=== PATIENT | female | born 1975 | race Caucasian/White ===

== ENCOUNTER 2019-05-17 07:23 | Inpatient (IN) | payer BC ==
[2019-05-14 12:19] LABS: Basophils # (auto) 0 uL; Eosinophils # (auto) 0.1 uL; Eosinophils % (auto) 1.8 % (0.0-7.0); Hematocrit 44.2 % (36.0-46.0); Hemoglobin 14.4 g/dL (12.2-16.2); Lymphocytes # (auto) 1.5 uL; Lymphocytes % (auto) 35.1 % (10.0-50.0); Mean Corpuscular Hemoglobin 28.7 pg (28.0-32.0); Mean Corpuscular Hgb Conc. 32.6 g/dL (32.0-36.0); Monocytes # (auto) 0.4 uL; Monocytes % (auto) 8.3 % (0.0-12.0); Neutrophils # (auto) 2.3 uL; Neutrophils % (auto) 53.8 % (37.0-80.0); Platelet Count (auto) 284 10^3/uL (140-450); Red Blood Cells 5.03 10^6/uL (4.0-5.20); White Blood Cell 4.3 10^3/uL (4.4-10.8)
[2019-05-14 12:21] LABS: Urine Bacteria FEW /hpf (None Seen); Urine Blood Negative /uL (Negative); Urine Specific Gravity 1.013 (1.001-1.035); Urine WBC <1 /hpf (0 - 5)
[2019-05-14 12:44] LABS: Potassium 3.9 mmol/L (3.5-5.1); Sodium 140 mmol/L (136-145)
[2019-05-14 12:45] LABS: Alanine Aminotransferase 23 U/L (13-56); Albumin 3.3 g/dL (3.4-5.0); Alkaline Phosphatase 70 U/L (45-117); Anion Gap 2 (5-15); Aspartate Aminotransferase 14 U/L (15-37); BUN/Creatinine Ratio 15.7; Bilirubin, Total 0.4 mg/dL (0.2-1.0); Blood Urea Nitrogen 14 mg/dL (7-18); Calcium 8.8 mg/dL (8.5-10.1); Carbon Dioxide 30 mmol/L (21-32); Chloride 108 mmol/L (98-107); GFR African American 89 mL/min; GFR Non-African American 74 mL/min; Glucose 80 mg/dL (74-106); Total Protein 7.9 g/dL (6.4-8.2)
[2019-05-14 12:47] LABS: INR 1.01 (0.9-1.15); Partial Thromboplastin Time 26.7 sec (23.64-32.05)
[~2019-05-17] VITALS: Ht 167.6 cm; Wt 136.5 kg
[~2019-05-17 07:23] MED LIST: ALBUAER3 IN; FLUT1SPR5
[2019-05-17] MEDS ORDERED: ceFAZolin 1GM/50ML 100 ML IV ONE (08:05)
[2019-05-17] MEDS ORDERED: SUCCINYLCHOLINE CHLORIDE 20 MG/ML 10ML VIAL IV ONE (08:34)
[2019-05-17] MEDS ORDERED: LIDOCAINE 1% (LOCAL ANESTH.) PF 5ml SDV ONE (08:34)
[2019-05-17] MEDS ORDERED: MIDAZOLAM HCL 1MG/1ML-2 ML VIAL ONE (08:42)
[2019-05-17] MEDS ORDERED: METOCLOPRAMIDE HCL 5MG/ml INJ 2ml VIAL ONE (08:43)
[2019-05-17] MEDS ORDERED: PROPOFOL 10 MG/ML 20 ML IV ONE (08:44)
[2019-05-17] MEDS ORDERED: fentaNYL CITRATE 100 MCG/2 ML VL ONE (08:56)
[2019-05-17] MEDS ORDERED: HYDROmorphone HCL 2 MG/ML VL IV PRN (09:15)
[2019-05-17] MEDS ORDERED: NALOXONE HCL 0.4 MG/ML VIAL IV PRN (09:15)
[2019-05-17] MEDS ORDERED: ONDANSETRON HCL 4 MG/2 ML VIAL IV PRN ×2 (09:15→11:00)
[2019-05-17] MEDS ORDERED: NEOSTIGMINE 1 MG/ML INJ (10mg/10ML VIAL) ONE (10:14)
[2019-05-17] MEDS ORDERED: GLYCOPYRROLATE 0.2 MG/ML 1ML VIAL ONE (10:14)
[2019-05-17] MEDS ORDERED: KETOROLAC TROMETH 30 MG/ML 1ML VIAL ONE (10:19)
[2019-05-17] MEDS ORDERED: ACETAMINOPHEN IV 100 ML IV PRN (11:00)
[2019-05-17] MEDS: HYDROmorphone HCL 2 MG/ML VL IV PRN ×6 (11:11→22:51)
--- NOTE | 2019-05-17 12:30 | NUR ---
ARRIVES TO 217A ALERT COMFORTABLE. ABDOMINAL BINDER OPENED TO SEE DRESSING D&I. PERIPAD SCANT STAIN. IV FLUIDS LR RUNNING AT 150CC/HR ORDERED. WILLAMS IN PLACE. CALL LIGHT IN REACH. C/O THIRST. ICE CHIPS PROVIDED.
[2019-05-17 13:00] VITALS: BP 113/75
[2019-05-17] MEDS: LACTATED RINGER'S 1,000 ML IV SCH ×3 (13:26→21:44)
[2019-05-17 14:04] LABS: Albumin 2.9 g/dL (3.4-5.0); BUN/Creatinine Ratio 11.4; Calcium 8.5 mg/dL (8.5-10.1); Potassium 4.7 mmol/L (3.5-5.1)
[2019-05-17 14:06] LABS: Bilirubin, Total 0.3 mg/dL (0.2-1.0); Total Protein 6.9 g/dL (6.4-8.2)
[2019-05-17] MEDS: ceFAZolin 1GM/50ML 50 ML IV SCH ×2 (14:31→21:45)
[2019-05-17 17:00] VITALS: BP 112/59
--- NOTE | 2019-05-17 19:40 | NUR ---
Opening Shift Note Assumed care of patient, awake and alert. No S/S of distress/SOB or pain. Per day shift RN, patient to be kept on NPO except ice chips throughout the night, patient verbalize understanding. Instructed on POC and to call for assist PRN. Bed locked in lowest position, side rails up x2, call light within reach. Will continue to monitor for changes Q1hr and PRN. Signed: 05/17/19 at 2353 by NAA CARR <Co-Signature Required> Co-Signed: 05/17/19 at 2353 by NIMCO MENA OCA, RN
[2019-05-17 22:00] VITALS: BP 120/61
[2019-05-18 05:00] VITALS: BP 101/58
[2019-05-18] MEDS: HYDROmorphone HCL 2 MG/ML VL IV PRN (05:15)
[2019-05-18 05:37] LABS: Basophils # (auto) 0 uL; Basophils % (auto) 0.3 % (0.0-2.0); Eosinophils # (auto) 0 uL; Eosinophils % (auto) 0.1 % (0.0-7.0); Hematocrit 40.8 % (36.0-46.0); Hemoglobin 13.3 g/dL (12.2-16.2); Lymphocytes # (auto) 0.9 uL; Lymphocytes % (auto) 11.3 % (10.0-50.0); Mean Corpuscular Hemoglobin 28.9 pg (28.0-32.0); Mean Corpuscular Hgb Conc. 32.7 g/dL (32.0-36.0); Mean Corpuscular Volume 88.2 fL (80.0-100.0); Monocytes # (auto) 0.6 uL; Monocytes % (auto) 7.6 % (0.0-12.0); Neutrophils # (auto) 6.6 uL; Neutrophils % (auto) 80.7 % (37.0-80.0); Platelet Count (auto) 246 10^3/uL (140-450); Red Blood Cells 4.62 10^6/uL (4.0-5.20); Red Cell Distribution Width 13.8 % (11.8-14.3); White Blood Cell 8.2 10^3/uL (4.4-10.8)
[2019-05-18] MEDS: ceFAZolin 1GM/50ML 50 ML IV SCH (05:56)
[2019-05-18] MEDS: LACTATED RINGER'S 1,000 ML IV SCH ×3 (05:57→16:23)
--- NOTE | 2019-05-18 06:35 | NUR ---
Spoke with MD Prosper Ferguson in regards to advancing patient's diet for breakfast and ancef antibiotic order. New orders recieved and read back for verification to advance patient to clear liquids and D/C ancef. Will continue care.
--- NOTE | 2019-05-18 07:45 | NUR ---
MD ROUNDS DR SAAVEDRA DISCUSSING POC WITH PATIENT. ALL QUESTIONS/CONCERNS ANSWERED. NEW ORDERS RECEIVED/CARRIED OUT. WILL CONTINUE TO MONITOR
--- NOTE | 2019-05-18 07:50 | NUR ---
Opening Shift Note Assumed care of patient, awake and alert. No S/S of distress/SOB. Instructed on POC and to call for assist PRN with call light within reach. Bed locked in lowest position, side rails up x2. Carrizales in place draining to gravity, no kinks, patent tubing. Will continue to monitor for changes Q1hr and PRN.
[2019-05-18] MEDS ORDERED: HYDROmorphone HCL 2 MG/ML VL IV PRN (08:15)
[2019-05-18] MEDS ORDERED: BISACODYL 10 MG RECT SUPP PR PRN (08:30)
[2019-05-18] MEDS ORDERED: DOCUSATE SOD 100 MG CAP PO PRN (08:30)
[2019-05-18 09:00] VITALS: BP 108/59
[2019-05-18] MEDS: HYDROcodone-ACET 10/325MG TAB PO PRN ×4 (09:13→21:19)
[2019-05-18] MEDS: DOCUSATE CALCIUM 240 MG CAP PO SCH (10:00)
--- NOTE | 2019-05-18 11:30 | NUR ---
Arce catheter dc'd Order to discontinue arce catheter. Arce dc'd with clean technique following deflation of balloon. Patient tolerated well with no complaints of pain. Instructed patient to notify RN when needed to use the bathroom. Patient verbalized understanding. WIll continue to monitor. Addendum: 05/18/19 at 1222 by CONSUELO AGRAWAL RN RN 1300 ml clear light guillermo urine in arce at d/c
--- NOTE | 2019-05-18 12:30 | NUR ---
PATIENT AMBULATING PATIENT AMBULATED APPROXIMATELY 200 FEET. NO S/S OF DISTRESS, SOB. TOLERATED WELL.
--- NOTE | 2019-05-18 12:45 | NUR ---
VOID PATIENT VOIDED IN TOILET. WILL CONTINUE TO MONITOR
[2019-05-18] MEDS: SIMETHICONE 80 MG CHEWABLE TABLET PO SCH ×3 (12:59→21:18)
[2019-05-18 13:00] VITALS: BP 113/63
--- NOTE | 2019-05-18 16:00 | NUR ---
PATIENT AMBULATING PATIENT AMBULATED APPROXIMATELY 200 FEET. NO S/S OF DISTRESS, SOB. TOLERATED WELL.
[2019-05-18 17:00] VITALS: BP 115/73
[2019-05-18 21:53] VITALS: BP 107/62
[2019-05-19 04:43] VITALS: BP 98/61
[2019-05-19] MEDS: SIMETHICONE 80 MG CHEWABLE TABLET PO SCH ×4 (04:56→21:47)
[2019-05-19] MEDS: LACTATED RINGER'S 1,000 ML IV SCH ×3 (04:56→23:53)
[2019-05-19] MEDS: HYDROcodone-ACET 10/325MG TAB PO PRN ×4 (04:56→19:41)
--- NOTE | 2019-05-19 08:20 | NUR ---
MD ROUNDS DR ALEXANDER AT BEDSIDE DISCUSSING POC WITH PATIENT. REMOVED SURGICAL DRESSING. PATIENT TOLERATED WELL. NEW ORDERS RECEIVED/CARRIED OUT. WILL CONTINUE TO MONITOR
[2019-05-19 09:00] VITALS: BP 100/62
[2019-05-19] MEDS: DOCUSATE CALCIUM 240 MG CAP PO SCH (09:37)
[2019-05-19 13:00] VITALS: BP 95/54
[2019-05-19 17:00] VITALS: BP 125/71
[2019-05-19 22:07] VITALS: BP 109/52
[2019-05-20] MEDS: HYDROcodone-ACET 10/325MG TAB PO PRN ×2 (04:24→11:13)
[2019-05-20 04:42] VITALS: BP 104/72
[2019-05-20] MEDS: SIMETHICONE 80 MG CHEWABLE TABLET PO SCH (05:51)
--- NOTE | 2019-05-20 07:30 | NUR ---
Opening Shift Note RECEIVED REPORT FROM NOC RN. Assumed care of patient, awake and alert. No S/S of distress/SOB or pain. BED IN LOWEST, LOCKED POSITION WITH SIDERAILS UP x2 AND CALL LIGHT WITHIN REACH. Instructed on POC and to call for assist PRN, will continue to monitor for changes Q1hr and PRN.
[2019-05-20 09:00] VITALS: BP 101/49
[2019-05-20] MEDS: LACTATED RINGER'S 1,000 ML IV SCH (10:32)
[2019-05-20] MEDS: DOCUSATE CALCIUM 240 MG CAP PO SCH (10:32)
[2019-05-20 13:07] VITALS: BP 100/50
[2019-05-20 14:27] VITALS: BP 100/50
[2019-05-20 17:03] VITALS: BP 90/54
== END 2019-05-20 17:15 | disposition home or self-care (01) | DRG 742 ==
LOC: SUR 07:23 → CENTRAL 12:22
PROVIDERS: ADMIT Specialist; ATTEND Specialist
PROC: 0UB70ZZ Excision of Bilateral Fallopian Tubes, Open Approach (ICD-10-PCS; 2019-05-17)
PROC: 0UT90ZL Resection of Uterus, Supracervical, Open Approach (ICD-10-PCS; principal; 2019-05-17 08:41)
DX: D25.9 Leiomyoma of uterus, unspecified (principal); Z68.42 Body mass index [BMI] 45.0-49.9, adult; E66.9 Obesity, unspecified; J45.909 Unspecified asthma, uncomplicated; N92.0 Excessive and frequent menstruation with regular cycle; Z82.49 Family history of ischemic heart disease and other diseases of the circulatory system; Z83.3 Family history of diabetes mellitus
CPT/HCPCS: 36415; 80053; 81001; 84702; 85025; 85610; 85730; 86850; 86900; 86901; G0378; J0330; J0690; J1885; J2250; J2405; J2704